=== PATIENT | female | born 1975 | race Caucasian/White ===

== ENCOUNTER → 2016-12-21 | Outpatient (REF) | payer OTHER ==
[~2016-12-21] MED LIST: CETI10TA PO; MONT10TA2 PO; PRED20TA PO; SERT-138 PO; TIZA2TA PO; TOPI50TA4 PO; VITA-122 PO
[2016-12-21 12:59] LABS: ANION GAP 7 MEQ/L (8-16); BLOOD UREA NITROGEN 13 MG/DL (7-18); CALCIUM LEVEL 9.1 MG/DL (8.5-10.1); CARBON DIOXIDE LEVEL 27 MEQ/L (21-32); CHLORIDE LEVEL 107 MEQ/L (98-107); CREATININE FOR GFR 0.96 MG/DL (0.55-1.02); GLOMERULAR FILTRATION RATE > 60.0 (>60); GLUCOSE, FASTING 93 MG/DL (70-105); POTASSIUM SERUM 4.3 MEQ/L (3.5-5.1); SODIUM LEVEL 141 MEQ/L (136-145)
[2016-12-21 13:12] LABS: BASO % 0.5 % (0.0-1.0); EOS # 0.2 K/mm3 (0.0-0.50); LARGE UNSTAINED CELL # 0.1 K/mm3 (0.0-0.4); LARGE UNSTAINED CELL % 1.4 % (0.0-4.0); LYMPH # 3.2 K/mm3 (1.5-4.5); LYMPH % 32.8 % (24.0-44.0); MEAN CORPUSCULAR HEMOGLOBIN 32.3 pg (27.0-33.0); MEAN CORPUSCULAR HGB CONC 33.7 g/dl (32.0-36.5); MEAN CORPUSCULAR VOLUME 95.8 fl (80.0-96.0); MONO # 0.4 K/mm3 (0.0-0.8); MONO % 4.2 % (0.0-5.0); NEUTROPHILS # 5.5 K/mm3 (1.8-7.7); PLATELET COUNT, AUTOMATED 237 k/mm3 (150-450); WHITE BLOOD COUNT 9.3 K/mm3 (4.0-10.0)
== END ==
LOC: M LABDRWAD 12:10
PROVIDERS: ATTEND Podiatrist
DX: Z01.818 Encounter for other preprocedural examination (principal)

== ENCOUNTER → 2016-12-25 | Outpatient (CLI) | payer OTHER ==
--- NOTE | 2016-12-25 15:59 | ECHO ---
DATE OF STUDY: 12/25/2016 REFERRING INDIVIDUAL: SIMON Yang INDICATION: Abdominal ECG. HEIGHT: 160 cm. WEIGHT: 89.4 kilograms. MEASUREMENTS: Left atrium: 3.6 cm Aortic root: 2.3 cm Ventricular septum: 0.90 cm Posterior wall: 0.80 cm Left ventricle diastole: 4.6 cm LVOT: 1.9 cm Inferior vena cava: 1.5 cm (>50% respiratory variation) DOPPLER MEASUREMENTS: Aortic valve velocity: 146 cm/s LVOT velocity: 79.0 cm/s LVOT VTI: 17.5 cm Mitral E velocity: 87.9 cm/s Mitral A velocity: 66.6 cm/s Mitral deceleration time: 141 milliseconds Trace tricuspid regurgitation. Estimated right ventricle systolic pressure: 28 mmHg assuming a right atrial pressure of 5 mmHg. Pulmonary artery systolic pressure: 31 mmHg by pulmonary acceleration time method. MITRAL ANNULAR TISSUE DOPPLER: E prime septal: 10.1 cm/s E prime lateral: 13.0 cm/s DESCRIPTION: Rhythm was sinus. Image quality was good. No pericardial effusion. This was a 2D, M-mode, color flow Doppler, and pulse wave Doppler examination and included mitral annular tissue Doppler. CONCLUSIONS: 1. Normal left ventricle internal dimension and wall thickness. Normal regional left ventricle (LV) wall motion and wall thickening. Normal LV systolic functioning. Left ventricular ejection fraction (LVEF) 60% by visual estimate. Normal LV diastolic dysfunction. 2. Suggestive of borderline to slight elevation of pulmonary artery systolic pressure. 3. Otherwise normal appearing echocardiogram Doppler.
== END ==
LOC: M CARPUL 11:39
PROVIDERS: ATTEND Physician Assistant Medical
DX: R94.31 Abnormal electrocardiogram [ECG] [EKG] (principal)

== ENCOUNTER → 2016-12-28 | Day surgery (SDC) | payer OTHER ==
[~2016-12-28] VITALS: Ht 160 cm; Wt 81.6 kg
[~2016-12-28] MED LIST changes: +BACITRACIN PWD 50,000 UNITS VIAL As Ordered ONE; +BUPIVACAINE HCL 0.5% 30 ML VIAL As Ordered ONE; +HYDROmorphone HCL 1 MG/ML SYRINGE (J1170) IV PRN; +LIDOCAINE 2% MDV 20 ML VIAL As Ordered ONE; +LR 1,000 ML IV ONE; +LR 1,000 ML IV SCH; +MIDAZOLAM INJ 2 MG/2 ML VIAL (J2250) As Ordered ONE; +NEOSPORIN GU IRRIG 20 ML VIAL As Ordered ONE; +ONDANSETRON 4MG/2ML VIAL (J2405) As Ordered ONE; +ONDANSETRON 4MG/2ML VIAL (J2405) IV PRN; +PERCOCET 5MG/325MG TAB PO PRN; +PROPOFOL 200 MG/20 ML VIAL As Ordered ONE; -TOPI50TA4 PO; +TOPI50TA9 PO; +dexameTHASONE 4 MG/ML 1ML VIAL (J1100) As Ordered ONE; +fentaNYL 100 MCG/2 ML INJECTION (J3010) As Ordered ONE; +fentaNYL 100 MCG/2 ML INJECTION (J3010) IV PRN; +methylPREDNISolone SUSP 40 MG/ML (DEPO-medrol) VIAL (J1030) As Ordered ONE
--- NOTE | 2016-12-28 11:39 | REP ---
Clinical: Postoperative baseline assessment. Technique: AP, lateral, oblique views of the left foot. Findings: Postoperative changes surrounding the first metatarsophalangeal joint noted. Alignment maintained. Impression: Postoperative changes. Signed by Kris Rivas MD 12/28/2016 11:30 A
[2016-12-28 13:50] VITALS: BP 124/77
--- NOTE | 2016-12-29 06:40 | RO ---
DATE OF PROCEDURE: 12/28/2016 PREPROCEDURE DIAGNOSIS: Hallux limitus deformity left foot. POSTPROCEDURE DIAGNOSIS: Hallux limitus deformity left foot. PROCEDURE: Cheilectomy first metatarsal phalangeal joint left foot. SURGEON: Adama Mcnally DPM CLINICAL ENGINEERING MANAGER: None. ANESTHESIA: Local MAC. ESTIMATED BLOOD LOSS: IRRIGATION: Dilute bacitracin, neomycin and polymyxin B solution. HEMOSTASIS: Ankle pneumatic tourniquet at 200 mmHg for 25 minutes left ankle. DESCRIPTION OF OPERATION: On 12/28/2016, this 41-year-old white female was taken from her hospital room to the operating room and placed on the operating room table in the supine position. Following the induction of IV sedation and local and regional anesthesia, the left lower extremity was prepped and draped in the usual aseptic manner. Attention was directed to patient's left foot where there was noted to be hallux limitus deformity and the following procedure was performed: CHEILECTOMY FIRST METATARSAL PHALANGEAL JOINT LEFT FOOT: Attention was directed to the patient's left foot where there was noted to be limited range of motion of the first metatarsal phalangeal joint. At this time, a 6 cm incision was placed over the first metatarsal phalangeal joint of the left foot medial to the extensor tendon. The incision was deepened through subcutaneous tissues and all coursing venous tributaries were identified, underscored, clamped, cut, ligated and electrocoagulated as necessary. A linear capsulotomy was then performed in the same plane as the original skin incision. The capsular and periosteal structures were then dissected free in one continuous layer dorsally medially and laterally thus creating a periosteal type envelope. This delivered into view the dorsal surface of the first metatarsal which had some dorsal spurring as well as a small erosion. Utilizing a sagittal saw, an osteotomy was performed through the dorsal 30% of the first metatarsal from distal to proximal through and through. Small 5 mm area of nonviable cartilage was noted and this was micro-drilled with a 0.9 K-wire. There was spurring noted on the dorsal aspect of the first metatarsal and utilizing a sagittal saw, the dorsal 10% of the proximal phalanx was osteotomized from dorsal to plantar through and through. Utilizing a metatarsal elevator, the plantar sesamoids were released. The wound was flushed with copious amounts of dilute bacitracin, neomycin and polymyxin B solution. Any resultant irregularity was smoothed with a sagittal saw. The wound was flushed with copious amounts of dilute bacitracin, neomycin and polymyxin B solution and the capsular structures were closed with #2-0 Monocryl in a simple interrupted type fashion. Subcutaneous tissues were coapted and maintained utilizing #4-0 Monocryl in a simple interrupted type fashion. Skin incision was coapted and maintained utilizing #5-0 Monocryl in a continuous subcuticular type fashion. This was additionally reinforced with Steri-Strips. Following the completion of the surgical procedure, approximately 4 mg of dexamethasone sodium phosphate was instilled proximal to the surgical site. Attention was directed toward bandaging where a sterile compressive bandage was applied consisting of Adaptic, 4x4s, 4x4 splints, Sergio, Kerlix and Coban. The ankle pneumatic tourniquet was then rapidly deflated and instantaneous capillary filling time was noted to digits of 1 through 5 of the patient's left foot. The patient having apparently tolerated the surgical procedure well was taken from the operating room (OR) to the recovery room with vital signs stable and the patient afebrile for further monitoring by the anesthesia department. All surgical specimens removed during the operative procedure were sent to pathology for gross and microscopic examination. Postoperative instructions will be given upon discharge.
== END | disposition home or self-care (01) ==
LOC: M SDC 08:04
PROVIDERS: ATTEND Podiatrist
DX: M20.22 Hallux rigidus, left foot (principal); M72.2 Plantar fascial fibromatosis; J30.89 Other allergic rhinitis; R51 Headache; M54.30 Sciatica, unspecified side; R32 Unspecified urinary incontinence; F41.9 Anxiety disorder, unspecified; F32.9 Major depressive disorder, single episode, unspecified; Z88.5 Allergy status to narcotic agent; Z79.899 Other long term (current) drug therapy; Z91.018 Allergy to other foods; Z91.09 Other allergy status, other than to drugs and biological substances; Z98.51 Tubal ligation status

== ENCOUNTER 2017-12-28 13:33 | Emergency (ER) | payer OTHER ==
[2017-12-28 14:56] LABS: BASO % 0.5 % (0.0-1.0); EOS # 0.1 10^3/uL (0.0-0.50); EOS % 0.6 % (0.0-3.0); IMMATURE GRANULOCYTE % 0.5 % (0-3.0); LYMPH # 2.4 10^3/uL (1.5-4.5); LYMPH % 27.2 % (24.0-44.0); MEAN CORPUSCULAR HGB CONC 35.9 g/dl (32.0-36.5); MONO # 0.6 10^3/uL (0.0-0.8); MONO % 6.7 % (0.0-5.0); NEUTROPHILS # 5.7 10^3/uL (1.8-7.7); NEUTROPHILS % 64.5 % (36.0-66.0); PLATELET COUNT, AUTOMATED 251 10^3/uL (150-450); RED BLOOD COUNT 4.24 10^6/uL (4.00-5.40); RED CELL DISTRIBUTION WIDTH 12.7 % (11.5-14.5); WHITE BLOOD COUNT 8.9 10^3/uL (4.0-10.0)
[2017-12-28 15:02] LABS: KETONE, URINE AUTO RFX 1+ mg/dL (NEGATIVE); LEUKOCYTE ESTERASE UR AUTO RFX NEGATIVE (NEGATIVE); MUCUS, URINE RFX LARGE (NEGATIVE); NITRITE, URINE AUTO RFX NEGATIVE (NEGATIVE); RBC, URINE AUTO RFX 3 /HPF (0-3); SPECIFIC GRAVITY UR AUTO RFX 1.021 (1.002-1.035); SQUAM EPITHELIAL CELL UR AURFX 4 /HPF (0-6); WBC, URINE AUTO RFX 6 /HPF (0-3)
[2017-12-28 15:15] LABS: ANION GAP 9 MEQ/L (8-16); BLOOD UREA NITROGEN 12 MG/DL (7-18); CALCIUM LEVEL 9.1 MG/DL (8.5-10.1); CARBON DIOXIDE LEVEL 22 MEQ/L (21-32); CHLORIDE LEVEL 108 MEQ/L (98-107); CREATININE FOR GFR 0.84 MG/DL (0.55-1.30); GLOMERULAR FILTRATION RATE > 60.0 (>58); GLUCOSE, FASTING 87 MG/DL (70-100); POTASSIUM SERUM 3.6 MEQ/L (3.5-5.1); SODIUM LEVEL 139 MEQ/L (136-145)
[2017-12-28] MEDS: ONDANSETRON 4MG/2ML VIAL (J2405) IV (16:15)
[2017-12-28] MEDS: NS 1,000 ML IV (16:15)
[2017-12-28 16:19] LABS: ALBUMIN/GLOBULIN RATIO 1.05 (1.00-1.93); ALKALINE PHOSPHATASE 80 U/L (45-117); ALT/SGPT 21 U/L (12-78); AMYLASE 37 U/L (25-115); AST/SGOT 9 U/L (7-37); BILIRUBIN,DIRECT 0.1 MG/DL (0.0-0.2); BILIRUBIN,TOTAL 0.5 MG/DL (0.2-1.0); LIPASE 144 U/L (73-393); TOTAL PROTEIN 7.8 GM/DL (6.4-8.2)
== END 2017-12-28 18:05 | disposition home or self-care (01) ==
LOC: M ED 13:33
DX: N39.0 Urinary tract infection, site not specified (principal); R11.2 Nausea with vomiting, unspecified; R19.7 Diarrhea, unspecified; Z88.5 Allergy status to narcotic agent; Z91.018 Allergy to other foods; Z79.899 Other long term (current) drug therapy
CPT/HCPCS: J2405

== ENCOUNTER → 2017-12-31 | Outpatient (REF) | payer OTHER, MEDICAID ==
[2017-12-31 20:02] LABS: BASO # 0.1 10^3/uL (0.0-0.2); BASO % 0.5 % (0.0-1.0); EOS # 0.1 10^3/uL (0.0-0.50); EOS % 0.6 % (0.0-3.0); HEMATOCRIT 38.7 % (36.0-47.0); HEMOGLOBIN 13.5 g/dl (12.0-15.5); IMMATURE GRANULOCYTE % 0.4 % (0-3.0); LYMPH # 2.5 10^3/uL (1.5-4.5); LYMPH % 27.3 % (24.0-44.0); MEAN CORPUSCULAR HGB CONC 34.9 g/dl (32.0-36.5); MEAN CORPUSCULAR VOLUME 94.6 fl (80.0-96.0); MONO # 0.6 10^3/uL (0.0-0.8); MONO % 6.4 % (0.0-5.0); NEUTROPHILS % 64.8 % (36.0-66.0); PLATELET COUNT, AUTOMATED 269 10^3/uL (150-450); RED BLOOD COUNT 4.09 10^6/uL (4.00-5.40); RED CELL DISTRIBUTION WIDTH 12.8 % (11.5-14.5); WHITE BLOOD COUNT 9.3 10^3/uL (4.0-10.0)
[2017-12-31 20:11] LABS: ALBUMIN 3.9 GM/DL (3.2-5.2); ALBUMIN/GLOBULIN RATIO 1.11 (1.00-1.93); ALKALINE PHOSPHATASE 74 U/L (45-117); ALT/SGPT 22 U/L (12-78); ANION GAP 13 MEQ/L (8-16); AST/SGOT 12 U/L (7-37); BILIRUBIN,TOTAL 0.4 MG/DL (0.2-1.0); BLOOD UREA NITROGEN 10 MG/DL (7-18); CALCIUM LEVEL 8.8 MG/DL (8.5-10.1); CARBON DIOXIDE LEVEL 22 MEQ/L (21-32); CHLORIDE LEVEL 104 MEQ/L (98-107); GLOMERULAR FILTRATION RATE > 60.0 (>58); GLUCOSE, FASTING 88 MG/DL (70-100); POTASSIUM SERUM 3.7 MEQ/L (3.5-5.1); SODIUM LEVEL 139 MEQ/L (136-145); TOTAL PROTEIN 7.4 GM/DL (6.4-8.2)
== END ==
LOC: M SFHCADAM 19:18
DX: R53.83 Other fatigue (principal)
CPT/HCPCS: 80053

== ENCOUNTER → 2018-11-15 | Outpatient (REF) | payer OTHER, MEDICAID ==
[~2018-11-15] MED LIST changes: -BACITRACIN PWD 50,000 UNITS VIAL As Ordered ONE; +BACT800T5 PO; -BUPIVACAINE HCL 0.5% 30 ML VIAL As Ordered ONE; -HYDROmorphone HCL 1 MG/ML SYRINGE (J1170) IV PRN; -LIDOCAINE 2% MDV 20 ML VIAL As Ordered ONE; -LR 1,000 ML IV ONE; -LR 1,000 ML IV SCH; -MIDAZOLAM INJ 2 MG/2 ML VIAL (J2250) As Ordered ONE; -NEOSPORIN GU IRRIG 20 ML VIAL As Ordered ONE; -ONDANSETRON 4MG/2ML VIAL (J2405) As Ordered ONE; -ONDANSETRON 4MG/2ML VIAL (J2405) IV PRN; -PERCOCET 5MG/325MG TAB PO PRN; -PROPOFOL 200 MG/20 ML VIAL As Ordered ONE; +ZOFR4TAB14 PO; -dexameTHASONE 4 MG/ML 1ML VIAL (J1100) As Ordered ONE; -fentaNYL 100 MCG/2 ML INJECTION (J3010) As Ordered ONE; -fentaNYL 100 MCG/2 ML INJECTION (J3010) IV PRN; -methylPREDNISolone SUSP 40 MG/ML (DEPO-medrol) VIAL (J1030) As Ordered ONE
[2018-11-15 20:10] LABS: BASO % 0.6 % (0.0-1.0); EOS # 0.1 10^3/uL (0.0-0.50); EOS % 0.8 % (0.0-3.0); HEMATOCRIT 42.6 % (36.0-47.0); HEMOGLOBIN 14.4 g/dl (12.0-15.5); LYMPH # 2.3 10^3/uL (1.5-4.5); LYMPH % 31.3 % (24.0-44.0); MEAN CORPUSCULAR HEMOGLOBIN 33.3 pg (27.0-33.0); MEAN CORPUSCULAR HGB CONC 33.8 g/dl (32.0-36.5); MEAN CORPUSCULAR VOLUME 98.4 fl (80.0-96.0); MONO # 0.4 10^3/uL (0.0-0.8); MONO % 5.6 % (0.0-5.0); NEUTROPHILS # 4.5 10^3/uL (1.8-7.7); NEUTROPHILS % 61.3 % (36.0-66.0); PLATELET COUNT, AUTOMATED 254 10^3/uL (150-450); RED BLOOD COUNT 4.33 10^6/uL (4.00-5.40); WHITE BLOOD COUNT 7.3 10^3/uL (4.0-10.0)
[2018-11-15 20:29] LABS: ALBUMIN 3.6 GM/DL (3.2-5.2); ALT/SGPT 46 U/L (12-78); BILIRUBIN,TOTAL 0.3 MG/DL (0.2-1.0); BLOOD UREA NITROGEN 13 MG/DL (7-18); CALCIUM LEVEL 8.3 MG/DL (8.5-10.1); CARBON DIOXIDE LEVEL 25 MEQ/L (21-32); CHLORIDE LEVEL 108 MEQ/L (98-107); CHOLESTEROL LEVEL 302 MG/DL (<200); GLOMERULAR FILTRATION RATE > 60.0 (>58); GLUCOSE, FASTING 95 MG/DL (70-100); HDL CHOLESTEROL 55 MG/DL (>40); LDL CHOLESTEROL 207 MG/DL (<100); NON-HDL-C 247 MG/DL; POTASSIUM SERUM 4.1 MEQ/L (3.5-5.1); SODIUM LEVEL 141 MEQ/L (136-145); TOTAL 25(OH) VITAMIN D 22.3 NG/ML (30.0-100.0); TOTAL PROTEIN 7.3 GM/DL (6.4-8.2); TRIGLYCERIDES LEVEL 198 MG/DL (<150)
== END ==
LOC: M SFHCADAM 12:14
PROVIDERS: ATTEND Physician Assistant Medical
DX: R19.5 Other fecal abnormalities (principal); F34.1 Dysthymic disorder; E78.2 Mixed hyperlipidemia; E55.9 Vitamin D deficiency, unspecified

== ENCOUNTER → 2018-12-24 | Outpatient (REF) | payer OTHER, MEDICAID | LOC: M SFHCADAM 18:23 | PROVIDERS: ATTEND Physician Assistant Medical | DX: R19.5 Other fecal abnormalities (principal) ==

== ENCOUNTER → 2019-01-07 | Outpatient (REF) | payer OTHER, MEDICAID ==
[2019-01-07 19:46] LABS: FREE T4 0.65 NG/DL (0.76-1.46); THYROID STIMULATING HORMONE 4.31 uIU/ML (0.358-3.740)
== END ==
LOC: M SFHCADAM 14:25
PROVIDERS: ATTEND Physician Assistant Medical
DX: R10.84 Generalized abdominal pain (principal); R79.89 Other specified abnormal findings of blood chemistry

== ENCOUNTER → 2019-02-25 | Outpatient (CLI) | payer OTHER ==
[2019-02-25 17:54] LABS: FREE T4 0.66 NG/DL (0.76-1.46); THYROID STIMULATING HORMONE 4.18 uIU/ML (0.358-3.740)
== END ==
LOC: M SMT 13:21
PROVIDERS: ATTEND Physician Assistant Medical
DX: R10.84 Generalized abdominal pain (principal); R79.89 Other specified abnormal findings of blood chemistry

== ENCOUNTER → 2019-02-26 | Outpatient (CLI) | payer OTHER | LOC: M LAB 15:13 | PROVIDERS: ATTEND Internal Medicine Gastroenterology | DX: R19.7 Diarrhea, unspecified (principal) ==

== ENCOUNTER → 2019-08-04 | Outpatient (REF) | payer OTHER, MEDICAID ==
[2019-08-04 16:34] LABS: FREE T4 0.98 NG/DL (0.76-1.46); THYROID STIMULATING HORMONE 2.07 uIU/ML (0.358-3.740)
== END ==
LOC: M SFHCADAM 11:50
PROVIDERS: ATTEND Physician Assistant Medical
DX: E03.9 Hypothyroidism, unspecified (principal)

== ENCOUNTER → 2019-09-04 | Outpatient (REF) | payer OTHER ==
[~2019-09-04] MED LIST changes: -MONT10TA2 PO; +MONT10TA4 PO
[2019-09-04 17:10] LABS: INFLUENZA A AMPLIFICATION NEGATIVE (NEGATIVE); INFLUENZA B AMPLIFICATION NEGATIVE (NEGATIVE)
== END ==
LOC: M LAB REF 16:24
PROVIDERS: ATTEND Physician Assistant
DX: J11.1 Influenza due to unidentified influenza virus with other respiratory manifestations (principal)

== ENCOUNTER → 2019-11-20 | Outpatient (CLI) | payer OTHER ==
--- NOTE | 2019-11-21 01:40 | REP ---
Clinical: Neck pain. Technique: AP, lateral, flexion/extension, bilateral oblique, and open-mouth views of the cervical spine. Findings: Focal moderate degenerative change at C5-6 and minimal degenerative change at C6-7. Findings include endplate sclerosis, osteophyte formation and mild disc space narrowing. Remainder of the examination is normal. No acute fracture / compression injury or subluxation. Oblique views demonstrate patent neural foramen. Impression: Focal moderate degenerative changes at C5-6. Focal mild degenerative changes at C6-7. Electronically Signed by Kris Rivas MD 11/21/2019 01:31 A
== END ==
LOC: M ADAMS 15:05
PROVIDERS: ATTEND Physician Assistant Medical
DX: M50.322 Other cervical disc degeneration at C5-C6 level (principal); M50.323 Other cervical disc degeneration at C6-C7 level; M25.78 Osteophyte, vertebrae

== ENCOUNTER → 2020-01-15 | Outpatient (CLI) | payer OTHER, MEDICAID ==
--- NOTE | 2020-01-15 23:09 | REP ---
BILATERAL HIPS: REASON: Bilateral hip pain. FINDINGS: The hip joint spaces are symmetric and relatively well maintained. There is no acute fracture or destructive osseous lesion. Electronically Signed by Girish Flynn DO 01/16/2020 11:22 A
--- NOTE | 2020-01-15 23:18 | REP ---
BILATERAL SHOULDERS: REASON: Atraumatic shoulder pain bilateral. COMPARISON: No priors. FINDINGS: Three views of the bilateral shoulders were performed. The acromioclavicular and glenohumeral relationships are within normal limits. There is no acute fracture or destructive osseous lesions. Incidental note is made of a bony island in the right humeral head. Electronically Signed by Girish Flynn DO 01/16/2020 11:22 A
== END ==
LOC: M ADAMS 14:11
PROVIDERS: ATTEND Physician Assistant Medical
DX: M25.511 Pain in right shoulder (principal); M25.512 Pain in left shoulder; M25.552 Pain in left hip; M25.551 Pain in right hip

== ENCOUNTER → 2020-04-08 | Outpatient (CLI) | payer OTHER ==
--- NOTE | 2020-04-13 08:50 | REP ---
BILATERAL SCREENING MAMMOGRAPHY WITH TOMOSYNTHESIS HISTORY: Family history of breast cancer in mother at age 66. [facility] lifetime risk of breast cancer 20.8%. TECHNIQUE: MLO and CC views are performed of both breasts with tomosynthesis. This is the patients baseline mammogram. FINDINGS: There is moderate heterogeneous fibroglandular tissue bilaterally. Volpara breast density is B. In the inferolateral left breast, in the mid-third of the breast, there is an oval nodule, which is somewhat ill-defined with partial smooth margins. Maximum diameter is approximately 2 cm. No other mass is seen bilaterally. There are no suspicious clusters of microcalcifications. IMPRESSION: ACR 0 incomplete. Baseline mammogram shows a nodule in the inferolateral left breast, which is partially ill-defined and has partial smooth well-defined margins. Maximum diameter is 2 cm. Recommend spot compression views and ultrasound to further evaluate. This mammogram was interpreted with the aid of an FDA approved computer-aided detection system. The patient states her last clinical breast exam was April 2020. Given the patients elevated lifetime risk of breast cancer greater than 20%, I would recommend supplemental screening MRI of the breasts. Patient letter: 0. MTDD
== END ==
LOC: M WHC 13:13
PROVIDERS: ATTEND Nurse Practitioner Women's Health
DX: R92.8 Other abnormal and inconclusive findings on diagnostic imaging of breast (principal); N63.20 Unspecified lump in the left breast, unspecified quadrant

== ENCOUNTER → 2020-04-08 | Outpatient (REF) | payer OTHER | LOC: M SFHCWAGY 17:16 | PROVIDERS: ATTEND Nurse Practitioner Women's Health | DX: Z12.4 Encounter for screening for malignant neoplasm of cervix (principal) ==

== ENCOUNTER → 2020-04-19 | Outpatient (CLI) | payer OTHER ==
--- NOTE | 2020-04-20 13:20 | REP ---
INDICATION: ADDITIONAL VIEWS LT BREAST. COMPARISON: Mammogram 04/08/2020. TECHNIQUE: Spot compression views left breast performed. FINDINGS: THESE CONFIRM THE PRESENCE OF AN OVAL NODULE IN THE LOWER OUTER LEFT BREAST THERE IS A PARTIALLY SMOOTH WELL-DEFINED MARGIN AND ABOUT 50% ILL-DEFINED MARGIN. MAXIMUM DIAMETER IS ABOUT 2 CM. REAL-TIME SONOGRAPHIC EVALUATION OF INFEROLATERAL LEFT BREAST IS PERFORMED. THERE IS AN OVAL NODULE AT THAT LOCATION WHICH APPEARS SOLID, IN THE REGION OF 4 O'CLOCK ABOUT 9 CM FROM THE NIPPLE. THERE MAY BE AN ECHOGENIC HILUM, THEREFORE THIS MAY REPRESENT AN INTRAMAMMARY LYMPH NODE. IT MEASURES 1.7 X 1.7 X 0.8 CM. THERE IS AN ADJACENT HYPOECHOIC NODULAR AREA MEASURING 9 X 10 X 3 MM ABOUT 10 CM FROM THE NIPPLE. THIS IS ALSO AT 4 O'CLOCK. IMPRESSION: BIRADS/ACR 4, SUSPICIOUS. NODULE CONFIRMED AT THE IN THE LOWER OUTER LEFT BREAST. BY ULTRASOUND AT 4 O'CLOCK THERE IS AN OVAL SOLID APPEARING NODULE WHICH COULD REPRESENT AN INTRAMAMMARY LYMPH NODE MEASURING 1.7 CM IN MAXIMUM DIAMETER ABOUT 9 CM FROM THE NIPPLE. THERE IS ALSO AN ADJACENT IRREGULAR HYPOECHOIC STRUCTURE WHICH APPEARS SOMEWHAT BILOBED AND MEASURES 9 X 10 X 3 MM. This mammogram was interpreted with the aid of an FDA-approved computer-aided detection system. The patient letter being requested is M 4. RECOMMENDATION: I WOULD RECOMMEND ULTRASOUND-GUIDED BIOPSY OF BOTH OF THESE AREAS, WITH POSTPROCEDURE MAMMOGRAPHY. <Electronically signed by Ildefonso Brown > 04/20/20 [id number]
== END ==
LOC: M WHC 11:02
PROVIDERS: ATTEND Nurse Practitioner Women's Health
DX: Z12.31 Encounter for screening mammogram for malignant neoplasm of breast (principal); N63.23 Unspecified lump in the left breast, lower outer quadrant

== ENCOUNTER → 2020-09-27 | Outpatient (REF) | payer OTHER ==
[~2020-09-27] MED LIST changes: +MONT10TA10 PO; -MONT10TA4 PO
[2020-09-27 18:54] LABS: BASO % 0.5 % (0.0-1.0); EOS # 0.1 10^3/uL (0.0-0.5); EOS % 1.5 % (0.0-3.0); HEMATOCRIT 44.5 % (36.0-47.0); HEMOGLOBIN 14.7 g/dl (12.0-15.5); LYMPH # 2.7 10^3/uL (1.5-5.0); LYMPH % 34.1 % (24.0-44.0); MEAN CORPUSCULAR HEMOGLOBIN 31.3 pg (27.0-33.0); MEAN CORPUSCULAR VOLUME 94.7 fl (80.0-96.0); MONO # 0.5 10^3/uL (0.0-0.8); MONO % 6.2 % (2.0-8.0); NEUTROPHILS # 4.5 10^3/uL (1.5-8.5); NEUTROPHILS % 57.4 % (36.0-66.0); PLATELET COUNT, AUTOMATED 273 10^3/uL (150-450); WHITE BLOOD COUNT 7.9 10^3/uL (4.0-10.0)
[2020-09-27 19:07] LABS: ALBUMIN 4.1 GM/DL (3.2-5.2); ALT/SGPT 46 U/L (12-78); BILIRUBIN,TOTAL 0.3 MG/DL (0.2-1.0); BLOOD UREA NITROGEN 18 MG/DL (7-18); CALCIUM LEVEL 9.3 MG/DL (8.5-10.1); CARBON DIOXIDE LEVEL 26 MEQ/L (21-32); CHLORIDE LEVEL 108 MEQ/L (98-107); CHOLESTEROL LEVEL 295 MG/DL (<200); CHOLESTEROL RISK RATIO 4.154 (<5); CREATININE FOR GFR 0.91 MG/DL (0.55-1.30); GLOMERULAR FILTRATION RATE > 60.0 (>58); GLUCOSE, FASTING 100 MG/DL (70-100); HDL CHOLESTEROL 71 MG/DL (>40); LDL CHOLESTEROL 202 MG/DL (<100); NON-HDL-C 224 MG/DL; POTASSIUM SERUM 4.7 MEQ/L (3.5-5.1); SODIUM LEVEL 139 MEQ/L (136-145); TOTAL PROTEIN 7.6 GM/DL (6.4-8.2); TRIGLYCERIDES LEVEL 112 MG/DL (<150)
[2020-09-28 13:59] LABS: TOTAL 25(OH) VITAMIN D 27.8 NG/ML (30.0-100.0)
== END ==
LOC: M SFHCADAM 14:10
PROVIDERS: ATTEND Physician Assistant Medical
DX: F34.1 Dysthymic disorder (principal); E55.9 Vitamin D deficiency, unspecified; F32.2 Major depressive disorder, single episode, severe without psychotic features; G43.909 Migraine, unspecified, not intractable, without status migrainosus

== ENCOUNTER → 2020-10-19 | Outpatient (CLI) | payer OTHER ==
--- NOTE | 2020-10-19 13:54 | REP ---
INDICATION: PAIN. COMPARISON: 01/15/2020 TECHNIQUE: Internal rotation, external rotation, axillary and Y-view of the right shoulder FINDINGS: Acromioclavicular and glenohumeral joints are intact and normal. No evidence for acute or healed injury. No overt degenerative changes. Incidental small chronic bone island in the humeral head again noted. No periarticular calcifications or loose bodies are identified. The subacromial space is normal. IMPRESSION: Essentially normal age-appropriate shoulder radiograph series. <Electronically signed by Kris Rivas > 10/19/20 [id number]
--- NOTE | 2020-10-19 13:55 | REP ---
INDICATION: PAIN. COMPARISON: 01/15/2020 TECHNIQUE: Internal rotation, external rotation, axillary and Y-view of the left shoulder. FINDINGS: Acromioclavicular and glenohumeral joints are intact and normal. No acute or healed injury. No overt arthritic degenerative changes. Subacromial space is normal. No periarticular calcifications or loose bodies are identified. IMPRESSION: Normal age-appropriate left shoulder radiographs. <Electronically signed by Kris Rivas > 10/19/20 [id number]
--- NOTE | 2020-10-19 13:56 | REP ---
INDICATION: PAIN. COMPARISON: None. TECHNIQUE: AP, lateral, bilateral oblique views of the right hand. FINDINGS: Osseous structures, joint spaces, and surrounding soft tissues are normal and age-appropriate. No overt osteoarthritic or inflammatory arthritic changes are appreciated. No evidence for acute or healed injury. IMPRESSION: Normal age-appropriate right hand radiograph series. <Electronically signed by Kris Rivas > 10/19/20 [id number]
--- NOTE | 2020-10-19 13:56 | REP ---
INDICATION: PAIN. COMPARISON: None. TECHNIQUE: AP, lateral, bilateral oblique views of the left hand. FINDINGS: Osseous structures, joint spaces, and surrounding soft tissues are age-appropriate and normal. No overt osteoarthritic or inflammatory arthritic changes are appreciated. No evidence for acute or healed injury. IMPRESSION: Normal age-appropriate left hand radiograph series. <Electronically signed by Kris Rivas > 10/19/20 [id number]
== END ==
LOC: M SOG 11:36
PROVIDERS: ATTEND Orthopaedic Surgery Sports Medicine
DX: M75.42 Impingement syndrome of left shoulder (principal); M75.41 Impingement syndrome of right shoulder

== ENCOUNTER → 2020-11-12 | Outpatient (CLI) | payer OTHER ==
--- NOTE | 2020-11-15 10:17 | REP ---
INDICATION: N63.20 MASS OF L BREAST S/O BENIGN BX. Status post benign biopsy 4 o'clock 9-10 cm from the nipple left breast. Two sonographic target were identified at 4 o'clock position on 19 April 2020 in the left breast. These were biopsied under ultrasound guidance. COMPARISON: Comparison sonography April 19, 2020.. TECHNIQUE: Targeted left breast sonography 4 o'clock position. FINDINGS: Targeted sonography left breast in the 4 o'clock position demonstrates 2 previously placed HydroMARK clip devices. No sonographically suspicious finding. IMPRESSION: BI-RADS category 2 benign findings. Routine screening mammography can be resumed. <Electronically signed by Tarun Gao > 11/15/20 [id number]
== END ==
LOC: M WHC 15:52
PROVIDERS: ATTEND Surgery
DX: N63.20 Unspecified lump in the left breast, unspecified quadrant (principal); Z97.8 Presence of other specified devices

== ENCOUNTER → 2022-11-06 | Outpatient (CLI) | payer OTHER ==
[~2022-11-06] MED LIST changes: -MONT10TA10 PO; +MONT10TA97 PO; +TOPI-254 PO; -TOPI50TA9 PO
== END ==
LOC: M PLALAB 11:19
PROVIDERS: ATTEND Surgery
DX: R73.03 Prediabetes (principal); Z53.9 Procedure and treatment not carried out, unspecified reason

== ENCOUNTER → 2022-11-17 | Outpatient (CLI) | payer OTHER | LOC: M PLALAB 11:26 | PROVIDERS: ATTEND Surgery | DX: R73.03 Prediabetes (principal) ==

== ENCOUNTER → 2023-07-26 | Outpatient (REF) | payer OTHER ==
[~2023-07-26] MED LIST changes: +BUSP10TA PO; +DULO1CAP6 PO; +ESTA0.25 PO; +LEVO50TA5 PO; +NAPR375T4 PO; +ROSU10TA6 PO; +TOPI-21 PO; -TOPI-254 PO; +VITA200032 PO
[2023-07-26 13:27] LABS: BASO # 0.1 10^3/uL (0.0-0.2); BASO % 0.6 % (0.0-1.0); EOS # 0.2 10^3/uL (0.0-0.5); HEMATOCRIT 41.5 % (36.0-47.0); HEMOGLOBIN 13.6 g/dl (12.0-15.5); LYMPH % 36.6 % (24.0-44.0); MEAN CORPUSCULAR HGB CONC 32.8 g/dl (32.0-36.5); MEAN CORPUSCULAR VOLUME 94.5 fl (80.0-96.0); MONO # 0.4 10^3/uL (0.0-0.8); MONO % 5.3 % (2.0-8.0); NEUTROPHILS # 4.5 10^3/uL (1.5-8.5); NEUTROPHILS % 55.1 % (36.0-66.0); PLATELET COUNT, AUTOMATED 244 10^3/uL (150-450); RED BLOOD COUNT 4.39 10^6/uL (4.00-5.40); WHITE BLOOD COUNT 8.1 10^3/uL (4.0-10.0)
[2023-07-26 13:45] LABS: BLOOD UREA NITROGEN 17 MG/DL (9-23); CALCIUM LEVEL 9.4 MG/DL (8.5-10.1); CARBON DIOXIDE LEVEL 25 MMOL/L (20-31); CHLORIDE LEVEL 109 MMOL/L (98-107); CREATININE FOR GFR 0.89 MG/DL (0.55-1.30); GLOMERULAR FILTRATION RATE > 60.0 (>58); GLUCOSE, FASTING 109 MG/DL (60-100); POTASSIUM SERUM 3.9 MMOL/L (3.5-5.1); SODIUM LEVEL 135 MMOL/L (136-145)
== END ==
LOC: M LABWUC 11:55
PROVIDERS: ATTEND Podiatrist
DX: M20.21 Hallux rigidus, right foot (principal); M79.671 Pain in right foot

== ENCOUNTER 2023-08-03 07:03 | Day surgery (SDC) | payer OTHER ==
[~2023-08-03] VITALS: Ht 162.6 cm; Wt 97.5 kg
[~2023-08-03 07:03] MED LIST changes: +LR 1,000 ML IV SCH; +ceFAZolin SOD 2 GM in IV 1 EA IV ONE
[2023-08-03] MEDS ORDERED: LIDOCAINE 2% MDV 20ML VIAL As Ordered ONE (07:15)
[2023-08-03] MEDS ORDERED: GENTAMICIN SULF 80MG/2ML VIAL As Ordered ONE (07:26)
[2023-08-03] MEDS ORDERED: fentaNYL 100 MCG/2 ML INJECTION As Ordered ONE (08:33)
[2023-08-03] MEDS ORDERED: propofoL 200 MG/20 ML VIAL As Ordered ONE ×2 (08:33→09:23)
[2023-08-03] MEDS ORDERED: LIDOCAINE 2% 100MG/5ML SDV (FOR ANES.) As Ordered ONE (08:33)
[2023-08-03] MEDS ORDERED: MIDAZOLAM INJ 2MG/2ML VIAL As Ordered ONE (08:33)
[2023-08-03] MEDS ORDERED: ACETAMINOPHEN 1000MG 100ML IV BAG As Ordered ONE (08:40)
[2023-08-03] MEDS ORDERED: METOCLOPRAMIDE INJ 10MG/2ML VIAL As Ordered ONE (08:51)
[2023-08-03] MEDS ORDERED: KETOROLAC 60MG 2ML VIAL As Ordered ONE (08:51)
[2023-08-03] MEDS ORDERED: ONDANSETRON 4MG 2ML VIAL As Ordered ONE (08:51)
[2023-08-03 10:35] VITALS: BP 142/80; TEMP 97.9; O2SAT 97
== END 2023-08-03 10:43 | disposition home or self-care (01) ==
LOC: M SDC 07:03
PROVIDERS: ATTEND Podiatrist
DX: M20.5X1 Other deformities of toe(s) (acquired), right foot (principal); E03.9 Hypothyroidism, unspecified; Z79.890 Hormone replacement therapy; Z79.899 Other long term (current) drug therapy; G43.909 Migraine, unspecified, not intractable, without status migrainosus; Z88.5 Allergy status to narcotic agent
CPT/HCPCS: 28289; 73630; 88300; J0131; J0665; J0690; J1100; J1580; J1885; J2250; J2405; J2765; J3010

== ENCOUNTER → 2023-12-24 | Outpatient (CLI) | payer OTHER ==
[~2023-12-24] MED LIST changes: -LR 1,000 ML IV SCH; -ROSU10TA6 PO; +ROSU10TA61 PO; -ceFAZolin SOD 2 GM in IV 1 EA IV ONE
[2023-12-24 18:39] LABS: ALBUMIN 3.6 G/DL (3.2-5.2); ALKALINE PHOSPHATASE 72 U/L (46-116); ALT/SGPT 25 U/L (7.0-40); AST/SGOT 11 U/L (<34); BILIRUBIN,TOTAL 0.4 MG/DL (0.3-1.2); BLOOD UREA NITROGEN 18 MG/DL (9-23); CARBON DIOXIDE LEVEL 26 MMOL/L (20-31); CHLORIDE LEVEL 107 MMOL/L (98-107); CHOLESTEROL LEVEL 193 MG/DL (<200); CHOLESTEROL RISK RATIO 2.78 (<5); CREATININE FOR GFR 0.85 MG/DL (0.55-1.30); GLOMERULAR FILTRATION RATE > 60.0 (>58); GLUCOSE, FASTING 89 MG/DL (60-100); HDL CHOLESTEROL 69.2 MG/DL (>40); LDL CHOLESTEROL 104.4 MG/DL (<100); NON-HDL-C 123.8 MG/DL; POTASSIUM SERUM 4.2 MMOL/L (3.5-5.1); SODIUM LEVEL 138 MMOL/L (136-145); TOTAL PROTEIN 6.4 G/DL (5.7-8.2); TRIGLYCERIDES LEVEL 97 MG/DL (<150)
[2023-12-24 18:40] LABS: THYROID STIMULATING HORMONE 1.355 uIU/ML (0.55-4.78)
== END ==
LOC: M WUC 13:03
PROVIDERS: ATTEND Internal Medicine
DX: E03.9 Hypothyroidism, unspecified (principal); E78.5 Hyperlipidemia, unspecified

== ENCOUNTER → 2024-08-05 | Outpatient (REF) | payer OTHER ==
[~2024-08-05] MED LIST changes: +NAPR-1404 PO; -NAPR375T4 PO
== END ==
LOC: M LAB REF 16:23
PROVIDERS: ATTEND Nurse Practitioner Family
DX: J06.9 Acute upper respiratory infection, unspecified (principal); Z20.828 Contact with and (suspected) exposure to other viral communicable diseases

== ENCOUNTER → 2025-05-26 | Outpatient (CLI) | payer OTHER ==
[~2025-05-26] MED LIST changes: -ROSU10TA61 PO; +ROSU10TA90 PO
[2025-05-26 18:59] LABS: ALT/SGPT 18.0 U/L (7.0-40); AST/SGOT 12.0 U/L (<34); CALCIUM LEVEL 8.8 MG/DL (8.5-10.1); CARBON DIOXIDE LEVEL 24.0 MMOL/L (20-31); CHLORIDE LEVEL 106.0 MMOL/L (98-107); CHOLESTEROL LEVEL 174.0 MG/DL (<200); CHOLESTEROL RISK RATIO 2.51 (<5); CREATININE FOR GFR 0.94 MG/DL (0.55-1.30); GLOMERULAR FILTRATION RATE 74.9 (>58); LDL CHOLESTEROL 75.2 MG/DL (<100); NON-HDL-C 104.8 MG/DL; POTASSIUM SERUM 3.8 MMOL/L (3.5-5.1); SODIUM LEVEL 141.0 MMOL/L (136-145); TRIGLYCERIDES LEVEL 148.0 MG/DL (<150)
== END ==
LOC: M WUC 15:14
PROVIDERS: ATTEND Internal Medicine
DX: E78.5 Hyperlipidemia, unspecified (principal); E03.9 Hypothyroidism, unspecified